=== PATIENT | female | born 2000 | race Caucasian/White ===

== ENCOUNTER 2021-11-23 22:00 | Observation (INO) | payer BC ==
[~2021-11-23] VITALS: Ht 167.6 cm; Wt 106.1 kg
[2021-11-24 00:39] LABS: BASOPHILS % (AUTO) 0.2 % (0.0-2.0); EOSINOPHILS # (AUTO) 0.1 K/uL (0.0-0.4); EOSINOPHILS % (AUTO) 0.7 % (0.0-4.0); LYMPHOCYTES % (AUTO) 14.7 % (20.5-51.5); MEAN CORPUSCULAR VOLUME 88 fL (79.0-98.0); MONOCYTES % (AUTO) 7.4 % (1.7-9.3); NEUTROPHILS # (AUTO) 10.4 K/uL (1.8-7.7); PLATELET COUNT (AUTO) 268 K/uL (130-430); RED CELL DISTRIBUTION WIDTH 13.8 % (9.0-15.0); WHITE BLOOD COUNT (AUTO) 13.5 K/uL (4.8-10.8)
== END 2021-11-24 01:05 | disposition home or self-care (01) ==
LOC: SPU 22:00
PROVIDERS: ADMIT Obstetrics & Gynecology; ATTEND Obstetrics & Gynecology
DX: O23.593 Infection of other part of genital tract in pregnancy, third trimester (principal); O36.8130 Decreased fetal movements, third trimester, not applicable or unspecified; O26.893 Other specified pregnancy related conditions, third trimester; R10.10 Upper abdominal pain, unspecified; Z3A.36 36 weeks gestation of pregnancy
CPT/HCPCS: 81002; 36415; 76819; 85025; G0378 ×2

== ENCOUNTER 2021-12-03 14:01 | Inpatient (IN) | payer BC ==
[~2021-12-03] VITALS: Ht 167.6 cm; Wt 108.4 kg
[2021-12-03] MEDS ORDERED: NALBUPHINE HCL 10 MG/ML AMP IVP PRN (15:00)
[2021-12-03] MEDS ORDERED: TERBUTALINE SULFATE 1 MG/ML VIAL SUBCUT ONE (15:00)
[2021-12-03] MEDS ORDERED: LR 1,000 ML IV ONE (15:00)
[2021-12-03] MEDS ORDERED: OXYTOCIN/0.9 % SODIUM CHLORIDE 1,000 ML IV SCH (15:00)
[2021-12-03 15:38] LABS: EOSINOPHILS # (AUTO) 0.1 K/uL (0.0-0.4); MEAN CORPUSCULAR VOLUME 87 fL (79.0-98.0)
[2021-12-03 15:42] LABS: BASOPHILS % (AUTO) 0.1 % (0.0-2.0); EOSINOPHILS % (AUTO) 0.5 % (0.0-4.0); HEMATOCRIT 38.9 % (36-48); LYMPHOCYTES # (AUTO) 1.5 K/uL (1.0-5.5); LYMPHOCYTES % (AUTO) 11.9 % (20.5-51.5); MONOCYTES # (AUTO) 0.8 K/uL (0.0-1.0); MONOCYTES % (AUTO) 6.6 % (1.7-9.3); NEUTROPHILS # (AUTO) 10.3 K/uL (1.8-7.7); NEUTROPHILS % (AUTO) 80.9 % (40.0-70.0); PLATELET COUNT (AUTO) 275 K/uL (130-430); RED BLOOD CELL COUNT(AUTO) 4.45 MIL/uL (4.2-6.2); RED CELL DISTRIBUTION WIDTH 14.3 % (9.0-15.0); WHITE BLOOD COUNT (AUTO) 12.7 K/uL (4.8-10.8)
[2021-12-03] MEDS ORDERED: DINOPROSTONE 10 MG SUPP VG ONE (15:45)
[2021-12-03 15:57] VITALS: BP_SYST 138
[2021-12-03 16:46] LABS: CALCIUM 9.1 mg/dL (8.4-11.0); CREATININE 0.8 mg/dL (0.55-1.30); POTASSIUM 4.1 mmol/L (3.5-5.1)
[2021-12-03 16:52] LABS: ALBUMIN 2.5 g/dL (3.4-4.8); TOTAL BILIRUBIN 0.1 mg/dL (0.0-1.0)
[2021-12-04] MEDS ORDERED: LR 1,000 ML IV ONE (13:30)
[2021-12-04] MEDS ORDERED: CEFAZOLIN 2 GM IVPB PREMIX 50 ML IV ONE (13:30)
[2021-12-04] MEDS ORDERED: NS IRRIG SOLN 1000 ML IR ONE (18:00)
[2021-12-04] MEDS ORDERED: ONDANSETRON HCL 4 MG/2 ML VIAL IVP ONE (18:00)
[2021-12-04] MEDS ORDERED: MORPHINE SULFATE 10MG/10ML PF AMP EP ONE (18:00)
[2021-12-04] MEDS ORDERED: BUPIVACAINE /DEX PF 0.75% SPINAL 2 ML AMP INJ ONE (18:00)
[2021-12-04] MEDS ORDERED: LR 1,000 ML IV.SOLN IV ONE (18:00)
[2021-12-04] MEDS ORDERED: DIPHENHYDRAMINE INJ 50 MG/ML VIAL IVP PRN (19:00)
[2021-12-04] MEDS ORDERED: fentaNYL CITRATE/PF 100 MCG/2 ML AMP IVP PRN ×2 (19:00)
[2021-12-04] MEDS ORDERED: NALOXONE HCL 0.4 MG/ML AMP (NARCAN) IVP PRN ×2 (19:00)
[2021-12-04] MEDS ORDERED: ONDANSETRON HCL 4 MG/2 ML VIAL IVP PRN ×2 (19:00)
[2021-12-04] MEDS ORDERED: MORPHINE SULFATE 10MG/10ML PF AMP SP SCH (19:00)
[2021-12-04] MEDS ORDERED: NALBUPHINE HCL 10 MG/ML AMP IVP PRN (19:00)
[2021-12-04] MEDS ORDERED: KETOROLAC TROMETHAMINE 60 MG/2 ML VIAL IM PRN (19:00)
[2021-12-04] MEDS ORDERED: METOCLOPRAMIDE HCL 10 MG/2 ML VIAL IVP PRN (19:00)
[2021-12-04] MEDS ORDERED: OXYCODONE/ACETAMINOPHEN 5-325 TABLET PO PRN ×2 (19:30)
[2021-12-04] MEDS ORDERED: LR 1,000 ML IV SCH (19:30)
[2021-12-04] MEDS ORDERED: RHO(D) IMMUNE GLOBULIN/MALTOSE 1500 UNITS/1.3 ML (WINHRO) IM PRN (19:30)
[2021-12-04] MEDS ORDERED: DIPHTH,PERTUSS(ACELL),TET VAC 0.5 ML VIAL (Tdap) I.M. PRN (19:30)
[2021-12-04] MEDS ORDERED: ANUSOL 1 EA SUPP.RECT (PREPARATION H) RC PRN (19:30)
[2021-12-04] MEDS ORDERED: TEMAZEPAM 15 MG CAPSULE PO PRN (19:30)
[2021-12-04] MEDS ORDERED: BISACODYL 10 MG/SUPPOSITORY RC PRN (19:30)
[2021-12-04] MEDS ORDERED: OXYTOCIN/0.9 % SODIUM CHLORIDE 1,000 ML IV ONE ×2 (19:30→20:20)
[2021-12-04] MEDS ORDERED: MEASLES,MUMPS&RUBELLA VACC/PF 12500 UNIT/0.5 ML VIAL SUBQ PRN (19:30)
[2021-12-04] MEDS ORDERED: HYDROcodone/ACETAMIN 5-325 MG TAB (NORCO/ VICODIN) PO PRN (19:30)
[2021-12-04] MEDS ORDERED: LANOLIN 7 GM OINT. TP PRN (19:30)
[2021-12-04 19:58] VITALS: BP_SYST 141
[2021-12-04] MEDS ORDERED: SENNOSIDES/DOCUSATE SODIUM 1 TAB TABLET(SENOKOT-S) PO SCH (21:00)
[2021-12-05 08:47] LABS: BASOPHILS % (AUTO) 0.3 % (0.0-2.0); EOSINOPHILS % (AUTO) 0.3 % (0.0-4.0); HEMATOCRIT 34.4 % (36-48); LYMPHOCYTES % (AUTO) 13.4 % (20.5-51.5); MEAN CORPUSCULAR VOLUME 88 fL (79.0-98.0); MONOCYTES # (AUTO) 1.3 K/uL (0.0-1.0); MONOCYTES % (AUTO) 8.4 % (1.7-9.3); NEUTROPHILS # (AUTO) 11.8 K/uL (1.8-7.7); NEUTROPHILS % (AUTO) 77.6 % (40.0-70.0); PLATELET COUNT (AUTO) 227 K/uL (130-430); RED CELL DISTRIBUTION WIDTH 13.9 % (9.0-15.0); WHITE BLOOD COUNT (AUTO) 15.2 K/uL (4.8-10.8)
[2021-12-05] MEDS ORDERED: DOCUSATE SODIUM 100 MG CAPSULE PO SCH (09:00)
[2021-12-05] MEDS: SIMETHICONE 80 MG TAB.CHEW PO PRN ×2 (09:25→17:56)
[2021-12-05] MEDS: IBUPROFEN 600 MG TABLET PO SCH ×2 (17:56→23:57)
[2021-12-06] MEDS: IBUPROFEN 600 MG TABLET PO SCH ×3 (06:06→13:50)
[2021-12-06 20:06] LABS: FTA-Ab (T PALLIDUM) Non Reactive (Non Reactive)
== END 2021-12-06 16:00 | disposition home or self-care (01) | DRG 788 ==
LOC: PREINTOOBSV 14:27 → SPU 14:30 → PREOBSVTOIN 14:30 → SPU 12-04 18:08
PROVIDERS: ADMIT Obstetrics & Gynecology; ATTEND Obstetrics & Gynecology
PROC: 10D00Z1 Extraction of Products of Conception, Low, Open Approach (ICD-10-PCS; principal; 2021-12-04 18:19)
DX: O14.04 Mild to moderate pre-eclampsia, complicating childbirth (principal); O99.344 Other mental disorders complicating childbirth; O61.9 Failed induction of labor, unspecified; F41.9 Anxiety disorder, unspecified; Z20.822 Contact with and (suspected) exposure to COVID-19; Z3A.38 38 weeks gestation of pregnancy; Z37.0 Single live birth
CPT/HCPCS: 36415; 80053; 81002; 85025; 86592; 86780; 86886; 86900; 86901; 94760; J0690; J2274; J2405; J2590; J3490; J7120

== ENCOUNTER 2023-05-14 22:59 | Emergency (ER) | payer BC ==
[~2023-05-14] VITALS: Ht 167.6 cm; Wt 86.2 kg
[~2023-05-14 22:59] MED LIST: DIPHENHYDRAMINE INJ 50 MG/ML VIAL ONE; methylPREDNISolone SOD SUCC/PF 62.5 MG/ML VIAL ONE
[2023-05-14 23:03] VITALS: BP_SYST 157; PULSE 83; RESP 19; TEMP 97.4; O2SAT 99
[2023-05-14] MEDS: NACL 0.9% 1,000 ML IV ONE (23:23)
[2023-05-14] MEDS: methylPREDNISolone SOD SUCC/PF 62.5 MG/ML VIAL IVP ONE (23:32)
[2023-05-14] MEDS: DIPHENHYDRAMINE INJ 50 MG/ML VIAL IVP ONE (23:32)
[2023-05-15] MEDS ORDERED: METH-776 PO (00:20)
[2023-05-15] MEDS ORDERED: FEXO180T94 PO (00:20)
[2023-05-15 00:22] VITALS: BP_SYST 157; PULSE 83; RESP 19; TEMP 97.4; O2SAT 99
[2023-05-16] MEDS ORDERED: PRED50TA PO (11:17)
== END 2023-05-15 00:22 | disposition home or self-care (01) ==
LOC: SED 22:59
DX: L50.9 Urticaria, unspecified (principal); Z79.899 Other long term (current) drug therapy
CPT/HCPCS: 99284; 96374; 96361; 96375; J1200; J7030; J2930

== ENCOUNTER 2023-05-16 09:22 | Emergency (ER) | payer BC ==
[~2023-05-16] VITALS: Ht 165.1 cm; Wt 81.6 kg
[~2023-05-16 09:22] MED LIST changes: -DIPHENHYDRAMINE INJ 50 MG/ML VIAL ONE; +FEXO180T94 PO; +METH-776 PO; -methylPREDNISolone SOD SUCC/PF 62.5 MG/ML VIAL ONE
[2023-05-16 09:33] VITALS: BP_SYST 152; PULSE 87; RESP 15; TEMP 97.5; O2SAT 99
[2023-05-16] MEDS ORDERED: predniSONE 20 MG TABLET ONE (10:11)
[2023-05-16] MEDS: predniSONE 20 MG TABLET PO ONE (10:11)
[2023-05-16] MEDS: EPINEPHRINE HCL/PF 1 MG/ML AMP IM ONE ×2 (10:11→11:40)
[2023-05-16] MEDS: DIPHENHYDRAMINE INJ 50 MG/ML VIAL IM ONE (10:12)
[2023-05-16] MEDS ORDERED: PRED50TA PO (11:17)
[2023-05-16 12:32] VITALS: BP_SYST 123; PULSE 96; RESP 18; TEMP 98; O2SAT 97
== END 2023-05-16 13:10 | disposition home or self-care (01) ==
LOC: SED 09:22
DX: L50.9 Urticaria, unspecified (principal); Z79.899 Other long term (current) drug therapy
CPT/HCPCS: 99285; 96372; J7512; J1200; J0171

== ENCOUNTER 2023-11-30 16:07 | Emergency (ER) | payer BC ==
[~2023-11-30] VITALS: Ht 167.6 cm; Wt 65.8 kg
[~2023-11-30 16:07] MED LIST changes: +PRED50TA PO
[2023-11-30 16:17] VITALS: BP_SYST 145; PULSE 109; RESP 18; TEMP 98.3; O2SAT 99
[2023-11-30 17:26] LABS: BASOPHILS % (AUTO) 0.2 % (0.0-2.0); EOSINOPHILS # (AUTO) 0.2 K/uL (0.0-0.4); EOSINOPHILS % (AUTO) 1.4 % (0.0-4.0); HEMATOCRIT 39.5 % (36-48); HEMOGLOBIN 13.7 g/dL (12.0-16.0); LYMPHOCYTES # (AUTO) 2.8 K/uL (1.0-5.5); MEAN CORPUSCULAR HEMOGLOBIN 32 pg (27-31); MEAN CORPUSCULAR HGB CONC 35 % (32-36); MEAN CORPUSCULAR VOLUME 91 fL (79.0-98.0); MONOCYTES # (AUTO) 0.8 K/uL (0.0-1.0); MONOCYTES % (AUTO) 6.9 % (1.7-9.3); NEUTROPHILS % (AUTO) 67.5 % (40.0-70.0); PLATELET COUNT (AUTO) 330 K/uL (130-430); RED BLOOD CELL COUNT(AUTO) 4.36 MIL/uL (4.2-6.2); RED CELL DISTRIBUTION WIDTH 13.1 % (9.0-15.0); WHITE BLOOD COUNT (AUTO) 11.8 K/uL (4.8-10.8)
[2023-11-30 18:15] LABS: ALBUMIN 3.7 g/dL (3.4-4.8); CALCIUM 9.2 mg/dL (8.4-11.0); CREATININE 0.74 mg/dL (0.55-1.30); POTASSIUM 3.8 mmol/L (3.5-5.1); TOTAL BILIRUBIN 0.2 mg/dL (0.0-1.0); TOTAL PROTEIN, SERUM 7.2 g/dL (6.4-8.3)
[2023-11-30 18:22] LABS: BILIRUBIN,URINE NEGATIVE (NEGATIVE); BLOOD, URINE 1+ (NEGATIVE); CLARITY/URINE CLEAR (CLEAR); COLOR,URINE YELLOW (YELLOW); GLUCOSE,URINE NEGATIVE (NEGATIVE); KETONES,URINE NEGATIVE (NEGATIVE); LEUKOCYTE ESTERASE ,URINE NEGATIVE (NEGATIVE); NITRITE, URINE NEGATIVE (NEGATIVE); PROTEIN URINE NEGATIVE (NEGATIVE); UROBILINOGEN,URINE 0.2 (0.2-1.0)
[2023-11-30 18:48] LABS: BACTERIA,URINE RARE /HPF (None Seen); MUCUS,URINE None Seen /LPF (None Seen); RBC,URINE 0-3 /HPF (0-3); WBC,URINE NONE SEEN /HPF (0-3)
[2023-11-30 20:40] VITALS: BP_SYST 120; PULSE 92; RESP 18; TEMP 98; O2SAT 98
== END 2023-11-30 20:40 | disposition home or self-care (01) ==
LOC: SED 16:07
DX: N93.8 Other specified abnormal uterine and vaginal bleeding (principal); R10.2 Pelvic and perineal pain; R03.0 Elevated blood-pressure reading, without diagnosis of hypertension; Z79.899 Other long term (current) drug therapy; Z79.52 Long term (current) use of systemic steroids
CPT/HCPCS: 36415; 76856; 80053; 81000; 81001; 81015; 81025; 85025; 86886; 86900; 86901; 87210; 99284